=== PATIENT | female | born 1955 | race Asian ===

== ENCOUNTER 2019-06-13 16:51 | Emergency (ER) | payer OTHER ==
[~2019-06-13] VITALS: Ht 157.5 cm; Wt 61.1 kg
[~2019-06-13 16:51] MED LIST: AMOX1TAB10 PO; FLUT9.9S NASAL
[2019-06-13 17:05] VITALS: BP 160/74; PULSE 79; RESP 16; Ht 157.5 cm; Wt 61.1 kg
--- NOTE | 2019-06-13 18:53 | ERD ---
ER Documentation Chief Complaint Chief Complaint pt c/o cough with running with mild fever x 10 days HPI 64-year-old female presents with complaint of runny nose, fever for 10 days. Patient has been using antihistamines with no improvement in symptoms. Notes purulent discharge from nose, with associated sinus and head pressure. Has not taken temperature but admits to feeling hot. Denies history of diabetes, cancer. ROS All systems reviewed and are negative except as per history of present illness. Medications Home Meds Active Scripts Fluticasone Propionate (Flonase Allergy Relief) 9.9 Ml [place].susp, 1 SPRAY NASAL BID for congestion, #1 BOTTLE TO EACH NOSTRIL Prov:TIMA LEIVA PA-C 06/13/19 Amoxicillin/Potassium Clav (Amox-Clav 875-125 mg Tablet) 875-125 mg Tab, 1 TAB PO BID for sinus infection for 10 Days, #20 TAB Prov:TIMA LIEVA PA-C 06/13/19 Allergies Allergies: Coded Allergies: No Known Allergy (Unverified , 06/13/19) PMhx/Soc Medical and Surgical Hx: pt denies Medical Hx, pt denies Surgical Hx Hx Alcohol Use: No Hx Substance Use: No Hx Tobacco Use: No Smoking Status: Never smoker FmHx Family History: No diabetes, No coronary disease, No other Physical Exam Vitals Vital Signs Date Temp Pulse Resp B/P (MAP) Pulse Ox O2 O2 Flow FiO2 Time Delivery Rate 06/13/19 98.6 79 16 160/74 99 17:05 (102) Physical Exam Constitutional: Well developed. Well nourished. No acute distress Head/Eyes: Atraumatic. Normocephalic. PERRL. EOMI ENT: TMs visible and intact, with no erythema or bulging. Moist mucous membranes. Voice normal. Positive tenderness to palpation of the frontal and maxillary sinuses. Neck: Supple. No lymphadenopathy Cardiovascular: Regular rate and rhythm. No murmurs, rubs, or gallops. Distal pulses intact Respiratory: No respiratory distress. Normal breath sounds. No wheezes, rales, or rhonchi. Extremities: No edema, Full ROM Skin: Dry. No rashes. Warm Neurological: Alert and oriented X 3. Normal speech Psychiatric: Normal mood. Normal affect Procedures/MDM MDM: This is an otherwise healthy, well appearing patient presenting with uncomplicated sinusitis. I have low clinical suspicion for deep space tissue infection of the head/neck, cavernous sinus thrombosis, meningitis, or other high risk bacterial infection. Based on patients physical exam and clinical symptoms, antibiotic treatment with amoxicillin-clavulanate is indicated for likely bacterial etiology given that the patients symptoms have been ongoing > 10 days with worsening symptoms after initial improvement. Patient is aware that the purpose of this visit was to screen for an acute medical emergency requiring emergent stabilization. Chronic conditions, including malignancies, have not been ruled out. Patient is instructed to follow-up with a PCP as directed in discharge instructions for continued care and work-up. If unable to arrange follow-up, patient is instructed to return to the ED for reassessment. Patient was given verbal and written discharge instructions and acknowledges understanding. Departure Diagnosis: Primary Impression: Sinus infection Sinusitis location: maxillary Chronicity: acute Recurrence: non- recurrent Qualified Codes: J01.00 - Acute maxillary sinusitis, unspecified Condition: Stable Patient Instructions: Sinusitis, Abx Tx Referrals: [facility] YOU HAVE RECEIVED A MEDICAL SCREENING EXAM AND THE RESULTS INDICATE THAT YOU DO NOT HAVE A CONDITION THAT REQUIRES URGENT TREATMENT IN THE EMERGENCY DEPARTMENT. FURTHER EVALUATION AND TREATMENT OF YOUR CONDITION CAN WAIT UNTIL YOU ARE SEEN IN YOUR DOCTORS OFFICE WITHIN THE NEXT 1-2 DAYS. IT IS YOUR RESPONSIBILITY TO MAKE AN APPOINTMENT FOR FOLOW-UP CARE. IF YOU HAVE A PRIMARY DOCTOR --you should call your primary doctor and schedule an appointment IF YOU DO NOT HAVE A PRIMARY DOCTOR YOU CAN CALL OUR PHYSICIAN REFERRAL HOTLINE AT IF YOU CAN NOT AFFORD TO SEE A PHYSICIAN YOU CAN CHOSE FROM THE FOLLOWING [facility] [address] [facility] [address] [facility] [facility] [address] [facility] [address] [facility] [address] [facility]. [facility]. [address] PA-C Jun 13, 2019 18:53
== END 2019-06-13 18:07 | disposition home or self-care (01) ==
LOC: FTE 16:51
DX: J01.00 Acute maxillary sinusitis, unspecified (principal)
CPT/HCPCS: 99283